=== PATIENT | female | born 1950 | race Caucasian/White ===

== ENCOUNTER → 2022-01-19 13:30 | Outpatient (BNVA) | payer MEDICARE, SELFPAY | PROVIDERS: Family Provider Family Medicine; Visit Provider Family Medicine | DX: N39.0 Urinary tract infection, site not specified (principal) | CPT/HCPCS: 81000 ==

== ENCOUNTER → 2022-01-29 13:51 | Outpatient (BNVA) | payer MEDICARE, SELFPAY | PROVIDERS: Family Provider Family Medicine; Visit Provider Nurse Practitioner Family | DX: R41.89 Other symptoms and signs involving cognitive functions and awareness (principal) | CPT/HCPCS: 81000 ==

== ENCOUNTER → 2022-02-04 09:17 | Outpatient (BNVA) | payer MEDICARE, SELFPAY | PROVIDERS: Family Provider Family Medicine; Visit Provider Nurse Practitioner Family | DX: R41.82 Altered mental status, unspecified (principal) | CPT/HCPCS: 80053; 85025 ==

== ENCOUNTER → 2022-03-04 10:23 | Outpatient (BNVA) | payer MEDICARE, SELFPAY | PROVIDERS: Family Provider Family Medicine; Visit Provider Nurse Practitioner Family | DX: R41.82 Altered mental status, unspecified (principal) | CPT/HCPCS: 81003; 87077; 87086; 87184 ==

== ENCOUNTER 2022-04-07 20:43 | Emergency (ER) | payer MEDICARE, MEDICAID, SELFPAY ==
[2022-04-07 20:44] VITALS: BMI 21.3
[2022-04-07 20:49] VITALS: PULSE 60; RESP 16; TEMP 36.9; O2SAT 96
[2022-04-07 21:01] VITALS: BP 200/110
--- NOTE | 2022-04-07 21:05 | ED_ITS ---
HPI - General Adult General: Chief complaint: General Medical Stated complaint: HYPERTENSION Time Seen by Provider: 04/07/22 20:47 History of Present Illness: 71-year-old female sent in by the custodial. Patient was sent in because she has been having elevated blood pressure pressure for about a week. Patient's blood pressures have been in the 200s systolic. Patient does not have any symptoms no chest pain vision changes headaches or any other systemic complaints. They report that about a week ago her metoprolol and lisinopril were increased but has not shown any changes. Patient denies any recent illnesses or any other systemic complaints. Associated symptoms: Deny chest pain, headache(s), malaise, nausea, rash, palpitations or vomiting Review of Systems Const: Denies: fever(s), chills, fatigue or malaise Eyes: Denies: change in vision, blurry vision or blind spots ENMT: Denies: throat pain Card: Denies: chest pain or palpitations GI: Denies: abdominal pain, nausea or vomiting : Denies: flank pain or dysuria Musc: Denies: neck pain or back pain Skin/Breast: Denies: rash or pruritus Neuro: Denies: headache(s) or weakness in extremities Psych: Denies: anxiety or depression Physical Exam Const: COMMON NORMALS: no acute distress, patient oriented x3 and no limitations HENMT: COMMON NORMALS: hearing grossly normal bilaterally and moist oral mucous membranes Resp: COMMON NORMALS: normal respiratory effort, No use of accessory muscles and clear to auscultation bilaterally AUSCULTATION: clear to auscultation bilaterally Cardio: COMMON NORMALS: regular rate and regular rhythm RATE: regular rate RHYTHM: regular rhythm Extremity: COMMON NORMALS: full ROM and capillary refill normal Neuro: COMMON NORMALS: patient oriented x3, moves all extremities, no focal motor deficits and no sensory deficits noted Psych: COMMON NORMALS: mental status grossly normal, Normal thought process present, cooperative, normal affect and speech normal SPEECH: Yes normal speech THOUGHT PROCESS: Normal thought process present Course Vital Signs: Vital signs: Vital Signs Temperature 98.0 F 04/07/22 22:56 Pulse Rate 73 04/07/22 22:56 Respiratory Rate 17 04/07/22 22:56 Blood Pressure 192/106 04/07/22 22:56 Pulse Oximetry 97 04/07/22 22:56 Oxygen Delivery Me thod 09/21/22 22:56 MDM - General Adult Medical Decision Making Patient with longstanding hypertension with no symptoms and new lab abnormalities. I will add amlodipine. She should follow-up with her primary care provider on Tuesday for further evaluation and recheck. Patient stable and discharged back to the custodial Lab Data : 04/07/22 21:37 04/07/22 21:37 Laboratory Results WBC 6.9 10^3/uL (4.0-10.0) 04/07/22 21:37 RBC 4.56 10^6/uL (4.1-5.3) 04/07/22 21:37 Hgb 13.5 g/dL (11.5-15.3) 04/07/22 21:37 Hct 38.5 % (37.0-47.0) 04/07/22 21:37 MCV 84.4 fl (81-99) 04/07/22 21:37 MCH 29.6 pg (28.0-34.0) 04/07/22 21:37 MCHC 35.1 g/dL (30.0-36.0) 04/07/22 21:37 RDW 13.3 % (12.1-15.1) 04/07/22 21:37 Plt Count 184 10^3/cmm (130-400) 04/07/22 21:37 MPV 9.5 fL (7.4-10.4) 04/07/22 21:37 Neut % (Auto) 49.9 % 04/07/22 21:37 Lymph % (Auto) 40.7 % 04/07/22 21:37 [place] % (Auto) 6.9 % 04/07/22 21:37 Eos % (Auto) 2.0 % 04/07/22 21:37 Baso % (Auto) 0.4 % 04/07/22 21:37 Neut # (Auto) 3.45 10^3/uL (1.8-7.7) 04/07/22 21:37 Lymph # (Auto) 2.8 10^3/uL (0.8-4.8) 04/07/22 21:37 [place] # (Auto) 0.5 10^3/uL (0.2-0.9) 04/07/22 21:37 Eos # (Auto) 0.1 10^3/uL (0.0-0.8) 04/07/22 21:37 Baso # (Auto) 0.0 10^3/uL (0.0-0.1) 04/07/22 21:37 Nucleated RBC % (auto) 0 % 04/07/22 21:37 Nucleated RBCs # 0.0 /100WBC 04/07/22 21:37 Sodium 139 mmol/L (136-145) 04/07/22 21:37 Potassium 3.4 mmol/L (3.5-5.1) L 04/07/22 21:37 Chloride 102 mmol/L (98-107) 04/07/22 21:37 Carbon Dioxide 27 mmol/L (22-29) 04/07/22 21:37 Anion Gap 13.4 (5-19) 04/07/22 21:37 BUN 13 mg/dL (8-23) 04/07/22 21:37 Creatinine 0.5 mg/dL (0.5-0.9) 04/07/22 21:37 GFR Calculation Not Reportable 04/07/22 21:37 Glucose 154 mg/dL (65-115) H 04/07/22 21:37 Calculated Osmolality 291 mOsm/kg (285-295) 04/07/22 21:37 Calcium 9.7 mg/dL (8.5-10.5) 04/07/22 21:37 Magnesium 1.7 mg/dL (1.7-2.3) 04/07/22 21:37 Discharge Plan Discharge Patient Disposition: Home Clinical Impression: Severe uncontrolled hypertension Condition: Stable Prescriptions: New amlodipine 5 mg tablet 5 mg PO BID Qty: 30 0RF Discharge Orders: Discharge ED (Routine); Ordered 04/07/22 Ordered By: Mateusz Rodriguez Referrals: Donovan Michaud MD [Primary Care Provider] - Discharge Diet: Usual diet Discharge Activity: Resume usual activity Patient Instructions: Opioid Safety, Pain Management, Chronic Hypertension (DC) Activity Restrictions/Additional Instructions: Please start amlodipine prescription in the morning. Follow-up with your primary care provider at the end of the week for recheck and further outpatient management Coding Level of Care Code ED Microbiology Soil Scientist for Chg Fwd Exam Detailed
[2022-04-07 21:20] VITALS: BP 231/106; PULSE 57; RESP 20; O2SAT 95
[2022-04-07] MEDS: amlodipine 5 mg Tablet PO (21:26)
[2022-04-07 21:44] LABS: Basophils % 0.4 %; Eosinophils # 0.1 10^3/uL (0.0-0.8); Hematocrit 38.5 % (37.0-47.0); Hemoglobin 13.5 g/dL (11.5-15.3); Lymphocytes # 2.8 10^3/uL (0.8-4.8); Lymphocytes % 40.7 %; Mean Corpuscular HGB Conc 35.1 g/dL (30.0-36.0); Mean Corpuscular Hemoglobin 29.6 pg (28.0-34.0); Mean Corpuscular Volume 84.4 fl (81-99); Mean Platelet Volume 9.5 fL (7.4-10.4); Monocytes # 0.5 10^3/uL (0.2-0.9); Monocytes % 6.9 %; Neutrophils # 3.45 10^3/uL (1.8-7.7); Neutrophils % 49.9 %; Nucleated Red Blood Cells % 0 %; Platelet Count 184 10^3/cmm (130-400); Red Blood Count 4.56 10^6/uL (4.1-5.3); Red Cell Distribution Width 13.3 % (12.1-15.1); White Blood Count 6.9 10^3/uL (4.0-10.0)
[2022-04-07 22:01] LABS: Anion Gap 13.4 (5-19); Blood Urea Nitrogen 13 mg/dL (8-23); Calcium 9.7 mg/dL (8.5-10.5); Carbon Dioxide 27 mmol/L (22-29); Chloride 102 mmol/L (98-107); Glucose 154 mg/dL (65-115); Magnesium 1.7 mg/dL (1.7-2.3); Osmolality Calculated 291 mOsm/kg (285-295); Potassium 3.4 mmol/L (3.5-5.1); Sodium 139 mmol/L (136-145)
[2022-04-07] MEDS: labetalol 5 mg/mL SDV 20mL 10 MG IVP (22:02)
[2022-04-07 22:08] VITALS: BP 178/108; PULSE 60; RESP 17; O2SAT 96
[2022-04-07 22:56] VITALS: BP 192/106; PULSE 73; RESP 17; TEMP 36.7; O2SAT 97
[2022-04-08 02:03] VITALS: BP 190/140; PULSE 54; RESP 16; O2SAT 95
== END 2022-04-08 02:10 | disposition home or self-care (01) ==
PROVIDERS: Emergency Provider Student in an Organized Health Care Education/Training Program; PCP Family Medicine
DX: I10 Essential (primary) hypertension (principal)
CPT/HCPCS: 36415; 80048; 83735; 85025; 96374; 99284; J3490

== ENCOUNTER → 2022-05-13 09:24 | Outpatient (BNVA) | payer MEDICARE, SELFPAY | PROVIDERS: PCP Family Medicine; Visit Provider Family Medicine | DX: R41.82 Altered mental status, unspecified (principal) | CPT/HCPCS: 81000; 87086; 87184 ==

== ENCOUNTER → 2022-08-24 11:02 | Outpatient (BNVA) | payer MEDICARE, MEDICAID, SELFPAY | PROVIDERS: PCP Family Medicine; Visit Provider Nurse Practitioner Family | DX: R32 Unspecified urinary incontinence (principal) | CPT/HCPCS: 81003; 87077; 87086; 87184 ==

== ENCOUNTER → 2022-09-23 09:27 | Outpatient (BNVA) | payer MEDICARE, MEDICAID, SELFPAY | PROVIDERS: PCP Family Medicine; Visit Provider Family Medicine | DX: F03.911 Unspecified dementia, unspecified severity, with agitation (principal); Z87.440 Personal history of urinary (tract) infections; N39.0 Urinary tract infection, site not specified | CPT/HCPCS: 81003; 87086 ==

== ENCOUNTER → 2022-10-13 14:42 | Outpatient (BNVA) | payer MEDICARE, MEDICAID, SELFPAY | PROVIDERS: PCP Family Medicine; Visit Provider Family Medicine | DX: R30.0 Dysuria (principal) | CPT/HCPCS: 81000; 87077; 87086; 87184 ==

== ENCOUNTER → 2023-05-18 17:44 | Outpatient (BNVA) | payer MEDICARE, MEDICAID, SELFPAY | PROVIDERS: PCP Family Medicine; Visit Provider Nurse Practitioner Family | DX: L02.91 Cutaneous abscess, unspecified (principal) | CPT/HCPCS: 87070; 87075; 87077; 87184; 87205 ==

== ENCOUNTER 2024-05-11 15:00 | Emergency (ER) | payer MEDICARE, MEDICAID, SELFPAY ==
[2024-05-11 15:02] VITALS: BP 198/87; PULSE 52; RESP 17; TEMP 36.7; O2SAT 95
--- NOTE | 2024-05-11 15:27 | CTR_ITS ---
PROCEDURE INFORMATION: Exam: CTA Head With Contrast, Arteriography Exam date and time: 05/11/2024 4:21 PM Age: 73 years old Clinical indication: Cognitive deficit; Age-related cognitive decline; Prior surgery; Surgery date: <1 month; Surgery type: Left eye; Additional info: Presurgical. AMS, dementia, recent left cataract surgery TECHNIQUE: Imaging protocol: Computed tomographic angiography of the head with contrast. Exam focused on the arteries. 3D rendering (Not supervised by radiologist): MIP and/or 3D reconstructed images were created by the technologist. Radiation optimization: All CT scans at this facility use at least one of these dose optimization techniques: automated exposure control; mA and/or kV adjustment per patient size (includes targeted exams where dose is matched to clinical indication); or iterative reconstruction. Contrast material: OMNIPAQUE 350; Contrast volume: 100 ml; Contrast route: INTRAVENOUS (IV); COMPARISON: CT head wo con* [id number] 05/11/2024 4:10 PM RADIATION DOSE METRICS: Total DLP (mGy-cm): 377.38 FINDINGS: ANTERIOR CIRCULATION: Right internal carotid artery: Intracranial segment is patent with no significant stenosis. No aneurysm. Right middle cerebral artery: No occlusion or significant stenosis. No aneurysm. Right anterior cerebral artery: No occlusion or significant stenosis. No aneurysm. Left internal carotid artery: Intracranial segment is patent with no significant stenosis. No aneurysm. Left middle cerebral artery: No occlusion or significant stenosis. No aneurysm. Left anterior cerebral artery: No occlusion or significant stenosis. No aneurysm. POSTERIOR CIRCULATION: Right vertebral artery: No occlusion or significant stenosis. No aneurysm. Left vertebral artery: No occlusion or significant stenosis. No aneurysm. Basilar artery: No occlusion or significant stenosis. No aneurysm. Right posterior cerebral artery: No occlusion or significant stenosis. No aneurysm. Left posterior cerebral artery: No occlusion or significant stenosis. No aneurysm. Brain: No definite mass, mass effect, or midline shift. Cerebral ventricles: No ventriculomegaly. Bones/joints: Unremarkable. No acute fracture. Soft tissues: Asymmetric left-sided preseptal soft tissue thickening. PROCEDURE INFORMATION: Exam: CTA Neck With Contrast Exam date and time: 05/11/2024 4:21 PM Age: 73 years old Clinical indication: Cognitive deficit; Age-related cognitive decline; Prior surgery; Surgery date: <1 month; Surgery type: Left eye; Additional info: Presurgical. AMS, dementia, recent left cataract surgery TECHNIQUE: Imaging protocol: Computed tomographic angiography of the neck with contrast. Exam focused on the cervical segments of the vasculature. 3D rendering (Not supervised by radiologist): MIP and/or 3D reconstructed images were created by the technologist. Radiation optimization: All CT scans at this facility use at least one of these dose optimization techniques: automated exposure control; mA and/or kV adjustment per patient size (includes targeted exams where dose is matched to clinical indication); or iterative reconstruction. Contrast material: OMNIPAQUE 350; Contrast volume: 100 ml; Contrast route: INTRAVENOUS (IV); COMPARISON: CT facial bones wo con* [id number] 05/11/2024 4:10 PM RADIATION DOSE METRICS: Total DLP (mGy-cm): 377.38 FINDINGS: Right common carotid artery: Moderate stenosis of the common carotid prior to the bifurcation with an estimated luminal narrowing of 65%. No dissection or occlusion. Right internal carotid artery: Moderate stenosis at the origin with an estimated 50% luminal narrowing. No dissection or occlusion. Right external carotid artery: No occlusion or stenosis of the origin. Left common carotid artery: No stenosis. No dissection or occlusion. Left internal carotid artery: No stenosis of the extracranial segment. No dissection or occlusion. Left external carotid artery: No occlusion or stenosis of the origin. Right vertebral artery: No stenosis. No dissection or occlusion. Left vertebral artery: No stenosis. No dissection or occlusion. Soft tissues: Normal. No significant soft tissue swelling. Bones/joints: No acute fracture. CT/CT angio headneck* [id number] IMPRESSION: 1. No large vessel stenosis or occlusion. 2. Left preseptal soft tissue thickening. IMPRESSION: Moderate stenosis of the right common carotid and internal carotid arteries. No severe stenosis or occlusion. REFERENCES: NASCET CRITERIA. The degree of stenosis in the cervical segment of the internal carotid artery is based on NASCET criteria. Normal is no stenosis. Mild is less than 50% stenosis. Moderate is 50-69% stenosis. Severe is 70% to 99% stenosis. Total occlusion is no detectable patent lumen.
--- NOTE | 2024-05-11 15:59 | CTR_ITS ---
PROCEDURE INFORMATION: Exam: CT Head Without Contrast Exam date and time: 05/11/2024 4:10 PM Age: 73 years old Clinical indication: Other: Questionable fall with facial swelling; Prior surgery; Surgery date: 3-7 days post-operative; Surgery type: Cataract; Additional info: Questionable fall with facial swelling PT arrives via EMS with left eye swelling. PT had cataract surgery at the beginning of the month but were unable to complete the surgery due to needing a cardiac workup. [facility] told EMS that swelling has been there since the surgery. PT is complaining of a headache. PT has a history of dementia. TECHNIQUE: Imaging protocol: Computed tomography of the head without contrast. Radiation optimization: All CT scans at this facility use at least one of these dose optimization techniques: automated exposure control; mA and/or kV adjustment per patient size (includes targeted exams where dose is matched to clinical indication); or iterative reconstruction. COMPARISON: CT facial bones wo con* [id number] 05/11/2024 4:10 PM RADIATION DOSE METRICS: Total DLP (mGy-cm): 1191.6 FINDINGS: Brain: No hemorrhage. No edema. Advanced diffuse cerebral atrophy and sequela of chronic small vessel ischemic disease. Old lacunar infarcts noted in the right basal ganglia. No mass effect. Cerebral ventricles: No ventriculomegaly. Paranasal sinuses: Visualized sinuses are unremarkable. No fluid levels. Mastoid air cells: Visualized mastoid air cells are well aerated. Bones: Unremarkable. No acute fracture. Soft tissues: Asymmetric left preseptal soft tissues thickening. CT/CT head wo con* [id number] IMPRESSION: 1. No acute intracranial abnormality. 2. Left preseptal soft tissue thickening.
--- NOTE | 2024-05-11 15:59 | CTR_ITS ---
PROCEDURE INFORMATION: Exam: CT Maxillofacial Without Contrast Exam date and time: 05/11/2024 4:10 PM Age: 73 years old Clinical indication: Mass, lump, or swelling; Prior surgery; Surgery date: 3-7 days post-operative; Patient HX: Left eye swelling. PT had cataract surgery at the beginning of the month but were unable to complete the surgery due to needing a cardiac workup. alf told EMS that swelling has been there since the surgery. PT is complaining of a headache. PT has a history of dementia. ; Additional info: Swelling around left eye questionable injury TECHNIQUE: Imaging protocol: Computed tomography of the face without contrast. Radiation optimization: All CT scans at this facility use at least one of these dose optimization techniques: automated exposure control; mA and/or kV adjustment per patient size (includes targeted exams where dose is matched to clinical indication); or iterative reconstruction. COMPARISON: CT head wo con* [id number] 05/11/2024 4:10 PM RADIATION DOSE METRICS: Total DLP (mGy-cm): 1819.86 FINDINGS: Paranasal sinuses: No air-fluid levels. Orbital cavities: Orbits are normal. Left cataract surgery. Bones: No acute fracture. Soft tissues: Left preseptal soft tissue thickening. CT/CT facial bones wo con* [id number] IMPRESSION: Left preseptal soft tissue thickening. No intraorbital extension. Negative for fracture.
--- NOTE | 2024-05-11 16:02 | ED_ITS ---
HPI - Eye Problem 2 General: Chief complaint: Eye Problems Stated complaint: SWOLLEN EYE Time Seen by Provider: 05/11/24 15:05 History of Present Illness: 73-year-old female with a known history of dementia presents to the ER from the [facility] chief complaint of left periocular swelling around the left eye patient apparently had recent cataract surgery about a month ago apparently since that time she has had swelling on the its unclear whether or not the patient has sustained a fall or injury per the patient she had fallen and hit the eye however per staff patient has a known history of dementia . The patient denies any other associated symptoms the patient's history is quite limited. Associated symptoms: Denies fever(s), headache(s), nausea or vomiting Related Data Home Medications Medication Instructions Recorded Confirmed acetaminophen 325 mg capsule 325 mg PO Q6H PRN 05/28/23 02/28/24 amlodipine 10 mg tablet 10 mg PO DAILY 05/28/23 02/28/24 atorvastatin 40 mg tablet 40 mg PO DAILY 05/28/23 02/28/24 bisacodyl 10 mg rectal suppository 10 mg TN DAILY PRN 05/28/23 02/28/24 clonidine HCl 0.1 mg tablet 0.1 mg PO DAILY 05/28/23 02/28/24 clopidogrel 75 mg tablet 75 mg PO DAILY 05/28/23 02/28/24 docusate sodium 100 mg capsule 100 mg PO DAILY 05/28/23 02/28/24 ibuprofen 200 mg capsule 200 mg PO Q8H 05/28/23 02/28/24 lisinopril 40 mg tablet 40 mg PO DAILY 05/28/23 02/28/24 loperamide 2 mg capsule 2 mg PO Q6H PRN 05/28/23 02/28/24 metoprolol tartrate 100 mg tablet 100 mg PO BID 05/28/23 02/28/24 quetiapine 50 mg tablet 50 mg PO TID 05/28/23 02/28/24 spironolactone 25 mg tablet 25 mg PO DAILY 05/28/23 02/28/24 Previous Rx's Medication Instructions Recorded amoxicillin 875 mg-potassium 1 tab PO Q12H #7 tabs 05/11/24 clavulanate 125 mg tablet Allergies Allergy/AdvReac Type Severity Reaction Status Date / Time cortisone Allergy Unknown Verified 09/08/23 09:39 Review of Systems 2 General: Reports: 10 or more systems reviewed and unremarkable except in HPI and below Const: Denies: fever(s), chills, fatigue or malaise Eyes: Reports: other (swelling around the left eye.); Denies: change in vision or blurry vision Card: Denies: chest pain or palpitations Resp: Denies: dyspnea or productive cough GI: Denies: abdominal pain, nausea or vomiting : Denies: flank pain Musc: Denies: extremity pain or extremity swelling Skin/Breast: Denies: rash or pruritus Neuro: Denies: headache(s) Psych: Denies: anxiety or depression Rito/Lymph: Denies: easy bleeding All/Imm: Denies: urticaria, throat swelling or facial swelling PFSH ED 2 PFSH: Medical History Repeated falls 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 and conduct Facial weakness following cerebral infarction Unspecified injury to L5 level of lumbar spinal cord, subsequent encounter Dyslipidemia Unspecified psychosis not due to a substance or known physiological condition Tobacco use Occlusion and stenosis of bilateral vertebral arteries Need for assistance with personal care Personal history of (healed) traumatic fracture Personal history of urinary (tract) infections Social History Smoking and tobacco/nicotine status: unknown if used tobacco/nicotine Physical Exam 2 Const: COMMON NORMALS: no acute distress and healthy appearing; negative for patient oriented x3 (At baseline alert oriented x 1 no focal neurodeficits appreciated) HENMT: COMMON NORMALS: normocephalic and atraumatic HEAD & SCALP: n ormocephalic and atraumatic OTHER: Moderate swelling around the left eye region with mild ecchymosis suggestive of potential trauma or injury actual eye appears to be somewhat injected but no obvious foreign bodies or trauma apparent. Eye: COMMON NORMALS: Equal, round and reactive pupils present and EOMs intact bilaterally PUPIL: Yes Equal, round and reactive pupils present Neck/C-Spine: COMMON NORMALS: full ROM, supple and no JVD Lymph: LYMPHATIC: no lymphadenopathy noted Chest: COMMONS NORMALS: normal inspection of the chest and normal palpation of entire chest wall Resp: COMMON NORMALS: normal respiratory effort, No retractions and clear to auscultation bilaterally EFFORT & INSPECTION: Yes able to speak in complete sentences and Yes symmetric chest movement AUSCULTATION: clear to auscultation bilaterally Cardio: COMMON NORMALS: no JVD, regular rate and regular rhythm RATE: r egular rate RHYTHM: regular rhythm GI: COMMON NORMALS: Normal to inspection, nondistended, normoactive bowel sounds present, Soft to palpation and non-tender INSPECTION: Yes normal to inspection PALPATION: Yes Soft to palpation : COMMON NORMALS: Yes no CVA tenderness BLADDER/KIDNEY EXAM: Yes no CVA tenderness Back/Pelvis: COMMON NORMALS: no CVA tenderness Extremity: COMMON NORMALS: normal to inspection and full ROM Neuro: COMMON NORMALS: CN's II-XII intact bilaterally, moves all extremities and no focal motor deficits; negative for patient oriented x3 (At baseline alert oriented x 1 no focal neurodeficits appreciated) Psych: COMMON NORMALS: mental status grossly normal, Normal thought process present, cooperative and normal affect THOUGHT PROCESS: Normal thought process present Skin: COMMON NORMALS: no rashes or lesions noted GENERAL SKIN EXAM: no rashes or lesions noted Course 2 Vital Signs: Vital signs: Vital Signs Temperature 98.1 F 05/11/24 15:02 Pulse Rate 60 05/11/24 18:00 Respiratory Rate 16 05/11/24 18:00 Blood Pressure 198/87 05/11/24 15:02 Pulse Oximetry 94 05/11/24 18:00 Oxygen Delivery Me thod Room Air 05/11/24 15:02 MDM - Eye Problem Medical Decision Making Due to the patient's symptoms and condition IV will be established I was notified by the revision surgery I will need a CTA of the neck prior to going back to surgery she is scheduled for cataract surgery we will be obtaining a CT of the head and facial bones without contrast as well will continue to follow. On exam based upon my limited findings presents that appears to be possibly traumatic origin. Which patient does have a history of frequent falls in the past. Patient was found to have some preseptal thickening involving the left eye due to patient's recent surgical management despite no white blood cell count elevation we will be starting some antibiotics for presumed preseptal cellulitis advised further follow-up with primary care for further investigation management patient will be started on some antibiotics for this and was to instructed to return the interim if any of her symptoms persist or worse. Lab Data 05/11/24 16:04 05/11/24 16:04 Radiology Impressions Head/Neck CTA 05/11/24 15:27 IMPRESSION: 1. No large vessel stenosis or occlusion. 2. Left preseptal soft tissue thickening. IMPRESSION: Moderate stenosis of the right common carotid and internal carotid arteries. No severe stenosis or occlusion. REFERENCES: NASCET CRITERIA. The degree of stenosis in the cervical segment of the internal carotid artery is based on NASCET criteria. Normal is no stenosis. Mild is less than 50% stenosis. Moderate is 50-69% stenosis. Severe is 70% to 99% stenosis. Total occlusion is no detectable patent lumen. Face CT 05/11/24 15:59 IMPRESSION: Left preseptal soft tissue thickening. No intraorbital extension. Negative for fracture. Head CT 05/11/24 15:59 IMPRESSION: 1. No acute intracranial abnormality. 2. Left preseptal soft tissue thickening. Laboratory Results WBC 4.62 10^3/uL (3.29-11.43) 05/11/24 16:04 RBC 3.94 10^6/uL (3.85-5.65) 05/11/24 16:04 Hgb 11.40 g/dL (11.27-16.99) 05/11/24 16:04 Hct 36.3 % (36-47) 05/11/24 16:04 MCV 92.1 fl (85-98) 05/11/24 16:04 MCH 28.9 pg (27-33) 05/11/24 16:04 MCHC 31.4 g/dL (30-55) 05/11/24 16:04 RDW 13.6 % (12.1-15.1) 05/11/24 16:04 Plt Count 134 10^3/cmm (157-399) L 05/11/24 16:04 MPV 10.1 fL (7.4-10.4) 05/11/24 16:04 Neut % (Auto) 52.0 % 05/11/24 16:04 Lymph % (Auto) 38.1 % 05/11/24 16:04 [place] % (Auto) 7.1 % 05/11/24 16:04 Eos % (Auto) 2.2 % 05/11/24 16:04 Baso % (Auto) 0.4 % 05/11/24 16:04 Neut # (Auto) 2.40 10^3/uL (1.8-7.7) 05/11/24 16:04 Lymph # (Auto) 1.8 10^3/uL (0.8-4.8) 05/11/24 16:04 [place] # (Auto) 0.3 10^3/uL (0.2-0.9) 05/11/24 16:04 Eos # (Auto) 0.1 10^3/uL (0.0-0.8) 05/11/24 16:04 Baso # (Auto) 0.0 10^3/uL (0.0-0.1) 05/11/24 16:04 Nucleated RBC % (auto) 0 % 05/11/24 16:04 Nucleated RBCs # 0.0 /100WBC 05/11/24 16:04 Sodium 136 mmol/L (136-145) 05/11/24 16:04 Potassium 4.6 mmol/L (3.5-5.1) 05/11/24 16:04 Chloride 103 mmol/L (98-107) 05/11/24 16:04 Carbon Dioxide 21 mmol/L (22-29) L 05/11/24 16:04 Anion Gap 16.6 (5-19) 05/11/24 16:04 BUN 19 mg/dL (8-23) 05/11/24 16:04 Creatinine 0.7 mg/dL (0.5-0.9) 05/11/24 16:04 GFR Calculation Not Reportable 05/11/24 16:04 Glucose 93 mg/dL (65-115) 05/11/24 16:04 Calculated Osmolality 284 mOsm/kg (285-295) L 05/11/24 16:04 Calcium 8.2 mg/dL (8.5-10.5) L 05/11/24 16:04 Total Bilirubin 0.4 mg/dL (0.15-1.2) 05/11/24 16:04 AST 14 U/L (0-32) 05/11/24 16:04 ALT 8 U/L (0-33) 05/11/24 16:04 Alkaline Phosphatase 53 U/L (35-105) 05/11/24 16:04 C-Reactive Protein 3.0 mg/L (0.0-4.9) 05/11/24 16:04 Total Protein 5.6 g/dL (6.6-8.7) L 05/11/24 16:04 Albumin 3.5 g/dL (3.5-5.2) 05/11/24 16:04 Globulin 2.1 g/dL (1.3-4.6) 05/11/24 16:04 XR interpretation done by ED provider, pending radiology final review Discharge Plan Discharge Patient Disposition: Home Clinical Impression: Preseptal cellulitis of left upper eyelid Condition: Stable Prescriptions: New amoxicillin-pot clavulanate 875-125 mg tablet 1 tab PO Q12H Qty: 7 0RF No Action metoprolol tartrate 100 mg tablet 100 mg PO BID spironolactone 25 mg tablet 25 mg PO DAILY amlodipine 10 mg tablet 10 mg PO DAILY atorvastatin 40 mg tablet 40 mg PO DAILY clopidogrel 75 mg tablet 75 mg PO DAILY quetiapine 50 mg tablet 50 mg PO TID lisinopril 40 mg tablet 40 mg PO DAILY acetaminophen 325 mg capsule 325 mg PO Q6H PRN bisacodyl 10 mg suppository 10 mg TN DAILY PRN clonidine HCl 0.1 mg tablet 0.1 mg PO DAILY Rx Instructions: as needed for bp systolic greater than 180 may repeat one time in 24 hr docusate sodium 100 mg capsule 100 mg PO DAILY ibuprofen 200 mg capsule 200 mg PO Q8H loperamide 2 mg capsule 2 mg PO Q6H PRN lidocaine HCl [Lidocaine Viscous] 2 % solution 1 applic topical ONCE Qty: 1 0RF lidocaine HCl [Lidocaine Viscous] 2 % solution 1 applic topical ONCE Qty: 1 0RF lidocaine HCl [Lidocaine Viscous] 2 % solution 1 applic topical ONCE Qty: 1 0RF lidocaine HCl [Lidocaine Viscous] 2 % solution 1 applic topical ONCE Qty: 1 0RF Discharge Orders: Discharge ED (Routine); Ordered 05/11/24 Ordered By: Vincenzo Winter Referrals: David Schultz DO [Primary Care Provider] - 1-3 days Patient Instructions: Periorbital Cellulitis (ED) Activity Restrictions/Additional Instructions: Take medications as prescribed please further follow-up with your doctor for further evaluation management there was some upper eyelid thickening concerning for possible early cellulitis as such she will be treated accordingly please return the interim if any of your symptoms persist or worse Coding Level of Care Code ED Hearing Impaired Itinerant Teacher for Osman Arellano
[2024-05-11] MEDS: iohexol 350 mg/mL 500 mL Btl (per mL) IV (16:30)
[2024-05-11 16:49] LABS: Basophils % 0.4 %; Eosinophils # 0.1 10^3/uL (0.0-0.8); Eosinophils % 2.2 %; Hematocrit 36.3 % (36-47); Lymphocytes # 1.8 10^3/uL (0.8-4.8); Lymphocytes % 38.1 %; Mean Corpuscular HGB Conc 31.4 g/dL (30-55); Mean Corpuscular Hemoglobin 28.9 pg (27-33); Mean Corpuscular Volume 92.1 fl (85-98); Mean Platelet Volume 10.1 fL (7.4-10.4); Monocytes # 0.3 10^3/uL (0.2-0.9); Monocytes % 7.1 %; Nucleated Red Blood Cells % 0 %; Platelet Count 134 10^3/cmm (157-399); Red Blood Count 3.94 10^6/uL (3.85-5.65); Red Cell Distribution Width 13.6 % (12.1-15.1); White Blood Count 4.62 10^3/uL (3.29-11.43)
[2024-05-11 17:07] LABS: Alanine Aminotransferase 8 U/L (0-33); Albumin Level 3.5 g/dL (3.5-5.2); Alkaline Phosphatase 53 U/L (35-105); Aspartate Amino Transferase 14 U/L (0-32); Blood Urea Nitrogen 19 mg/dL (8-23); Calcium 8.2 mg/dL (8.5-10.5); Carbon Dioxide 21 mmol/L (22-29); Chloride 103 mmol/L (98-107); Globulin 2.1 g/dL (1.3-4.6); Glucose 93 mg/dL (65-115); Osmolality Calculated 284 mOsm/kg (285-295); Sodium 136 mmol/L (136-145); Total Bilirubin 0.4 mg/dL (0.15-1.2); Total Protein 5.6 g/dL (6.6-8.7)
[2024-05-11 17:08] LABS: Anion Gap 16.6 (5-19); Potassium 4.6 mmol/L (3.5-5.1)
[2024-05-11 18:00] VITALS: PULSE 60; RESP 16; O2SAT 94
[2024-05-11] MEDS: cefTRIAXone 1,000 mg SDV 1000 MG IVP (19:13)
--- NOTE | 2024-05-11 19:30 | PC.NURSE ---
Report called to ME. All questions answered at this time.
[2024-05-11 20:28] VITALS: BP 199/92; PULSE 63; O2SAT 95
== END 2024-05-11 20:30 | disposition home or self-care (01) ==
PROVIDERS: Emergency Provider Emergency Medicine; PCP Family Medicine
DX: L03.213 Periorbital cellulitis (principal)
CPT/HCPCS: 36415; 70450; 70486; 70496; 70498; 80053; 85025; 86140; 96374; 99285; J0696

== ENCOUNTER → 2024-12-06 14:35 | Outpatient (BNVA) | payer MEDICARE, MEDICAID, SELFPAY | PROVIDERS: PCP Family Medicine; Visit Provider Nurse Practitioner Family | DX: R41.0 Disorientation, unspecified (principal) | CPT/HCPCS: 81000; 87086 ==

== ENCOUNTER → 2025-01-02 09:11 | Outpatient (BNVA) | payer MEDICARE, MEDICAID, SELFPAY | PROVIDERS: PCP Family Medicine; Visit Provider Nurse Practitioner Family | DX: N39.0 Urinary tract infection, site not specified (principal) | CPT/HCPCS: 81000; 87086 ==